=== PATIENT | female | born 1985 | race Caucasian/White ===

== ENCOUNTER 2021-05-08 04:22 | Outpatient (CLI) | payer MEDICAID, SELFPAY ==
[2021-05-08 09:10] LABS: Hemoglobin A1C 5.3 % (<5.7)
[2021-05-08 10:17] LABS: ALT 21 U/L (14-59); AST 16 U/L (15-37); Albumin 3.3 g/dL (3.4-5.0); Alkaline Phosphatase 93 U/L (46-116); Anion Gap 11.2 mmol/L (3-11); BUN 10 mg/dL (7-18); Bilirubin, Total 0.2 mg/dL (0.2-1.0); CO2 24.8 mmol/L (21.0-32.0); CREATININE 0.6 mg/dL (0.55-1.02); Calcium 8.7 mg/dL (8.5-10.1); Chloride 102 mmol/L (98-107); Cholesterol 256 mg/dL (<200); Ferritin 8 ng/mL (8-252); Folate > 20.0 ng/mL (8.6-20.0); Glucose 83 mg/dL (74-106); HDL Cholesterol 37 mg/dL (40-60); Magnesium 1.6 mg/dL (1.8-2.4); Potassium 3.7 mmol/L (3.5-5.1); Sodium 138 mmol/L (136-145); TSH 1.89 uIU/mL (0.36-3.74); Total Protein 6.8 g/dL (6.4-8.2); Triglyceride 559 mg/dL (<150); Vitamin B12 287 pg/mL (193-986)
[2021-05-08 10:29] LABS: LDL CHOLESTEROL 105 mg/dL (<100)
[2021-05-08 10:45] LABS: FREE T4 0.69 ng/dL (0.76-1.46)
[2021-05-08 17:13] LABS: T3,Free 4.3 pg/mL (2.8-5.3)
[2021-05-09 15:58] LABS: Alcohol Negative mg/dL (Cutoff: 10); Amphetamines Presumptive Positive ng/mL; Barbiturates Negative; Benzodiazepines Negative; Cocaine Negative; Opiates Negative; Phencyclidine Negative ng/mL (Cutoff: 25); Tetrahydrocannabinol Negative ng/mL (Cutoff: 50)
[2021-05-11 01:36] LABS: Vitamin D 25 Total 13.2 ng/mL (30-100)
[2021-05-15 15:12] LABS: MDA (Ecstasy Metabolite) Negative ng/mL (Cutoff: 25); MDMA (Ecstasy) Negative ng/mL (Cutoff: 25); Methamphetamine Negative ng/mL (Cutoff: 25); Phentermine Negative ng/mL (Cutoff: 25); Pseudoephedrine/Ephedrine Negative ng/mL (Cutoff: 25)
[2021-05-20 14:36] LABS: EDDP-by GC-MS 39499 ng/mL (Cutoff: 100); Methadone-by GC-MS 11257 ng/mL (Cutoff: 100)
[2021-05-20 14:37] LABS: Methadone Interpretation Positive
== END 2021-05-08 04:23 | disposition home or self-care (01) ==
LOC: LBO 04:22
DX: F29 Unspecified psychosis not due to a substance or known physiological condition (principal)
CPT/HCPCS: 36415; 80053; 80061; 80307; 80324; 82306; 83721; 80358; 82607; 82728; 82746; 83036; 83735; 84439; 84443; 84481; 86140

== ENCOUNTER 2021-05-24 18:39 | Emergency (ER) | payer MEDICAID, SELFPAY ==
[2021-05-24] VITALS (16 sets, daily range): BP systolic 117–146; BP diastolic 68–80; PULSE 60–84; RESP 12–24; TEMP 36.8; O2SAT 97–100
--- NOTE | 2021-05-24 18:30 | RT.EKG_ITS ---
APPROVED REPORT Exam: Resting ECG Reason for Exam: CHEST PAIN Patient Location: E HR:59 bpm ECG Measurements Heart Rate 59 AXIS GA 178 P 8 QRSd 85 QRS 67 QT 457 T 56 QTc 452 Conclusion Sinus bradycardia...rate< 60 Nonspecific T abnormalities, anterior leads...T <-0.10mV, V2-V4. Sinus. No STEMI. T wave inversion in anterior leads. I have reviewed and interpreted ECG and agree with software generated interpretation.
--- NOTE | 2021-05-24 18:45 | DI.RAD_ITS ---
Exam(s) XR PORTABLE CHEST AP EXAM: XR PORTABLE CHEST AP CLINICAL HISTORY: Chest pain,. TECHNIQUE: 2D digital imaging was performed. COMPARISON: No exams were available for comparison FINDINGS: Heart size is upper normal. The mediastinum is not widened. Lungs are clear. No infiltrates nor obvious pleural effusions. IMPRESSION: No acute pulmonary findings on this single AP portable view of the chest. DATA REPOSITORY: RADIATION DOSE DELIVERED: All CT scans at this facility use at least one of these dose optimization techniques: automated exposure control; mA and/or kV adjustment per patient size (includes targeted e xams where dose is matched to clinical indication); or iterative reconstruction.
--- NOTE | 2021-05-24 18:56 | ED.GENADUL_ITS ---
Discharge Plan Disposition Patient Disposition: HOME Condition: Stable Discharge Details Clinical Impression: Left-sided chest wall pain Primary Care Provider: Unknown,Unknown ED Provider: Alyssa Horner Home Meds and New Rx's Prescriptions: New lidocaine 5 % adhesive patch,medicated 1 patch topical DAILY PRN (Reason: pain (scale score 7-10)) 7 Days Qty: 15 0RF Rx Instructions: leave on most painful area for up to 12 hrs amoxicillin-pot clavulanate [Augmentin] 500-125 mg tablet 1 tab PO BID 7 Days Qty: 14 0RF No Action methadone 10 mg/5 mL Solution 140 mg PO DAILY 0RF lorazepam 0.5 mg Tablet 0.5 mg PO DAILY 0RF melatonin 1 mg Tablet 6 mg PO DAILY 0RF gabapentin 300 mg Tablet 300 mg PO TID 0RF Discharge Instructions Instructions: Costochondritis (ED), Chest Wall Pain (ED) Additional Instructions: At this time cardiac work-up is within normal limits. No evidence of lung or heart involvement. I do suspect that this is an inflammation of the connective tissue within your rib cage. Use lidocaine patches as directed once a day. Please take Tylenol or Ibuprofen with food every 4-6 hours as needed for pain a nd swelling. Follow up with primary care provider in 3-5 days. Return to ED sooner if any worsening or concerns. Increase oral fluids. Medical Decision Making 35-year-old female presents to the ER with left lateral chest pain which began this morning. She reports increased pain with movement leaning forward and deep breathing. She is a daily smoker. She is not vaccinated for COVID. She denies any fever or chills. Denies any nausea vomiting diarrhea. She is speaking in full sentences upon initial exam and has clear bilateral lung sounds with auscultation. Cardiac work-up ordered, Covid ordered due to patient's unvaccinated status, D- dimer also ordered. EKG was reviewed by Miri Chacko ER attending, please see her official report and review. No old Hg available for review. Differential diagnosis includes not limited to pneumonia, costochondritis, PE, coronary artery disease, pneumothorax. CBC within normal limits sodium slightly low at 135, D-dimer also within normal limits initial troponin within normal limits. Covid negative. COMPARISON: No relevant prior studies available. FINDINGS: Lungs: No consolida tion. Pleural spaces: No pleural effusion. No pneumothorax. Heart/Mediastinum: No cardiomegaly. Bones/joints: Mild thoracic dextroscoliosis. No displaced fracture. IMPRESSION: Negative portable chest. Discussion with patient regarding discharge she requested an antibiotic for some dental caries. She also is requesting a lidocaine patch to go. Discussed lab result and imaging she verbalized understanding. Discussed return instructions. HPI General Mode of arrival: ambulatory . Date/Time Provider Initiated Documentation: 05/24/21 18:48 . Limitations to Documentation: no limitations . Information obtained by: RN notes reviewed . HPI Narrative: 35-year-old female presents to the ER with left lateral chest pain which began this morning. She reports increased pain with movement leaning forward and deep breathing. She is a daily smoker. She is not vaccinated for COVID. She denies any fever or chills. Denies any nausea vomiting diarrhea. She is speaking in full sentences upon initial exam and has clear bilateral lung sounds with auscultation. Related Data Home Medications Medication Instructions Recorded Confirmed amoxicillin 500 mg-potassium 1 tab PO BID 7 Days #14 tab 05/24/21 clavulanate 125 mg tablet (Augmentin) gabapentin 300 mg tablet 300 mg PO TID 05/24/21 05/24/21 lidocaine 5 % topical patch 1 patch TOPICAL DAILY PRN 7 Days 05/24/21 #15 ea lorazepam 0.5 mg tablet 0.5 mg PO DAILY 05/24/21 05/24/21 melatonin 1 mg tablet 6 mg PO DAILY 05/24/21 05/24/21 methadone 10 mg/5 mL oral solution 140 mg PO DAILY 05/24/21 05/24/21 Previous Rx's Medication Instructions Recorded amoxicillin 500 mg-potassium 1 tab PO BID 7 Days #14 tab 05/24/21 clavulanate 125 mg tablet (Augmentin) lidocaine 5 % topical patch 1 patch TOPICAL DAILY PRN 7 Days 05/24/21 #15 ea Allergies Allergy/AdvReac Type Severity Reaction Status Date / Time No Known Allergies Allergy Unverified 05/24/21 18:46 General Stated Complaint: Chest Pain GABRIEL: 3 Review of Systems All systems reviewed & are unremarkable except as noted in HPI and below Constitutional Constitutional: Denies chills and Denies fever(s) Cardiovascular Cardiovascular: Reports as per HPI, Reports chest pain, Denies claudication and Denies leg edema PFSH All Active Problems (Updated 05/24/21 @ 20:21 by Alyssa Horner) Left-sided chest wall pain (Acute) Social History Smoking/Tobacco Use Status: Current every day Tobacco Type: cigarettes Smoking risk assessment performed?: Yes Alcohol Intake: never Drug use: Current Sobriety Substance use type: marijuana Do you feel safe at home: Yes Do you feel safe in your relationship?: Yes Exam Narrative Exam Narrative: Constitutional: Alert and oriented x3. Appears stated age. Normal body habitus. Head: Normocephalic, no trauma. Eyes: Pupils PERRL, Red reflex noted, EOM's intact. Eyelids symmetrical without lesions, discharge, or swelling. ENT: Bilateral TM's WNL, External ear normal to inspection, no mastoid TTP, swelling, or erythema, Nasal turbinates WNL, no nasal discharge. Normal dentition, Posterior pharynx WNL, no exudate. Chest: RRR, Normal S1, S2, distal pulses intact. Resp: Lungs clear to auscultation bilaterally, no wheezes, rales, or rhonchi. Abdomen: Soft, non-distended, Normoactive bowel sounds all 4 quads. Musculoskeletal: Normal gait, 5/5 strength to all four extremities. Skin: No suspicious rashes or lesions. Capillary refill less than 2 sec. Neurologic: Cranial nerves II-XII intact. Alert and oriented x 3. Motor: No deficits noted. Sensory: Intact bilaterally all 4 extremities. Reflexes: DTR's intact bilaterally.. Hematologic/Lymphatic: No ecchymosis, no lymphadenopathy. Course Vital Signs Vital signs: Vital Signs Temperature 36.8 C 05/24/21 18:43 Pulse 63 05/24/21 18:43 Respiratory Rate 16 05/24/21 18:43 Blood Pressure 140/76 05/24/21 18:43 Pulse Oximetry 100 05/24/21 18:43 Temperature 36.8 C 05/24/21 18:43 Temperature Source Temporal Artery Scan 05/24/21 18:43 Pulse 63 05/24/21 18:43 Respiratory Rate 16 05/24/21 18:43 Respiratory Effort Non-Labored 05/24/21 18:49 Blood Pressure 140/76 05/24/21 18:43 Blood Pressure Position Sitting 02/13/22 18:43 Pulse Oximetry 100 05/24/21 18:43 Oxygen Delivery Method Room Air 05/24/21 18:43 Oxygen Flow Rate 0 05/24/21 18:43
[2021-05-24 19:30] LABS: Abs Immature Grans 0.03 10^3/uL (0.0-0.06); Absolute Basophil Count 0.04 10^3/uL (0.0-0.2); Absolute Eosinophil Count 0.13 10^3/uL (0.0-0.7); Absolute Lymphocyte Count 2.64 10^3/uL (1.2-3.4); Absolute Monocyte Count 0.75 10^3/uL (0.1-0.8); Absolute Neutrophil Count 4.79 10^3/uL (1.2-6.7); Basophils % 0.5; Eosinophils % 1.6; HCT 39.4 % (36.0-46.0); HGB 13.1 g/dL (11.2-15.7); Immature Grans % 0.4; Lymphocytes % 31.5; MCH 30.6 pg (27.0-33.0); MCHC 33.2 % (32.0-36.0); MCV 92.1 fL (80-95); MPV 10.7 fL (8.0-11.0); Monocytes % 8.9; Neutrophils % 57.1; Nucleated RBC 0 %; Platelet Count 230 10^3/uL (130-400); RBC 4.28 10^6/uL (3.93-5.22); RDW 12.7 % (11.7-14.6); RDW-SD 42.6 fL; WBC 8.38 10^3/uL (4.4-10.8)
[2021-05-24] MEDS: Lidocaine 5% Patch 1 PATCH TP ×2 (19:43→20:38)
--- NOTE | 2021-05-24 19:43 | DI.VRAD_ITS ---
PROCEDURE INFORMATION: Exam: XR Chest Exam date and time: 05/24/2021 18:57 Age: 35 years old Clinical indication: Left-sided; Patient HX: Left sided chest pain TECHNIQUE: Imaging protocol: XR of the chest. Views: 1 view. COMPARISON: No relevant prior studies available. FINDINGS: Lungs: No consolidation. Pleural spaces: No pleural effusion. No pneumothorax. Heart/Mediastinum: No cardiomegaly. Bones/joints: Mild thoracic dextroscoliosis. No displaced fracture. IMPRESSION: Negative portable chest. Dictated and Authenticated by: Rubia Buitrago MD. Ordering:PROMISE Shah MD
[2021-05-24 19:45] LABS: ALT 21 U/L (14-59); AST 23 U/L (15-37); Albumin 3.5 g/dL (3.4-5.0); Alkaline Phosphatase 101 U/L (46-116); Anion Gap 6.9 mmol/L (3-11); BUN 11 mg/dL (7-18); Bilirubin, Total 0.2 mg/dL (0.2-1.0); CO2 28.1 mmol/L (21.0-32.0); CREATININE 0.7 mg/dL (0.55-1.02); Calcium 8.9 mg/dL (8.5-10.1); Chloride 100 mmol/L (98-107); Glucose 103 mg/dL (74-106); Potassium 3.6 mmol/L (3.5-5.1); Sodium 135 mmol/L (136-145); Total Protein 7.6 g/dL (6.4-8.2); Troponin I < 50 ng/L (<or=60)
[2021-05-24] MEDS: Nicotine 2 MG GUM CH (19:57)
[2021-05-24 20:04] LABS: D-Dimer 251 ng/mlFEU (<500)
[2021-05-24 20:04] LABS: COVID-19 PCR Negative (Negative)
[2021-05-24 20:05] LABS: Source Nasal/Nares
== END 2021-05-24 20:32 | disposition home or self-care (01) ==
PROVIDERS: Emergency Provider Registered Nurse Emergency
DX: R07.89 Other chest pain (principal); F17.210 Nicotine dependence, cigarettes, uncomplicated; K02.9 Dental caries, unspecified; Z28.3 Underimmunization status
CPT/HCPCS: 36415; 80053; 81025; 87635; 93005; 99282; 99284; 71045; 83735; 84484; 85025; 85379; 93010

== ENCOUNTER 2022-01-06 03:14 | Outpatient (CLI) | payer MEDICAID, SELFPAY ==
[2022-01-06 12:26] LABS: Calculated LDL 84 mg/dL (<100); Cholesterol 179 mg/dL (<200); HDL Cholesterol 48 mg/dL (40-60); Triglyceride 237 mg/dL (<150)
== END 2022-01-06 03:15 | disposition home or self-care (01) ==
LOC: LOS 03:14
PROVIDERS: PCP Nurse Practitioner Family; Visit Provider Nurse Practitioner Family
DX: E78.5 Hyperlipidemia, unspecified (principal)
CPT/HCPCS: 36415; 80061

== ENCOUNTER 2022-01-06 18:35 | Emergency (ER) | payer MEDICAID, SELFPAY ==
[2022-01-06] VITALS (18 sets, daily range): BP systolic 104–129; BP diastolic 65–85; PULSE 66–85; RESP 12–26; TEMP 37; O2SAT 94–99
--- NOTE | 2022-01-06 18:30 | RT.EKG_ITS ---
APPROVED REPORT Exam: Resting ECG Reason for Exam: chest pain Patient Location: E HR:65 bpm ECG Measurements Heart Rate 65 AXIS AZ 181 P -1 QRSd 82 QRS 69 QT 432 T 56 QTc 450 Conclusion Sinus rhythm...normal P axis, V-rate 60- 99 Nonspecific T abnormalities, anterior leads...T <-0.10mV, V2-V4 Physician:no stemi, inverted t waves in anterior leads, unchanged
--- NOTE | 2022-01-06 19:00 | DI.RAD_ITS ---
Exam(s) XR PORTABLE CHEST AP EXAM: XR PORTABLE CHEST AP CLINICAL HISTORY: chest pain TECHNIQUE: 2D digital imaging was performed of the chest. One image was obtained. An AP view was ob tained. COMPARISON: CR,XR XR PORTABLE CHEST AP from 05/24/2021 FINDINGS: MEDIASTINUM: Normal. HEART: Normal. PULMONARY VASCULATURE: Normal. LUNGS: Clear. PLEURAL SPACE: No pleural effusion or pneumothorax. BONE:Within normal limits for the patient's age. OTHER FINDINGS:Normal. IMPRESSION: No acute pulmonary findings. DATA REPOSITORY: RADIATION DOSE DELIVERED:
[2022-01-06 19:15] LABS: Abs Immature Grans 0.05 10^3/uL (0.0-0.06); Absolute Basophil Count 0.03 10^3/uL (0.0-0.2); Absolute Eosinophil Count 0.16 10^3/uL (0.0-0.7); Absolute Lymphocyte Count 2.92 10^3/uL (1.2-3.4); Absolute Monocyte Count 0.76 10^3/uL (0.1-0.8); Absolute Neutrophil Count 5.26 10^3/uL (1.2-6.7); Basophils % 0.3; Eosinophils % 1.7; HCT 39.2 % (36.0-46.0); HGB 13.1 g/dL (11.2-15.7); Immature Grans % 0.5; Lymphocytes % 31.8; MCH 30.3 pg (27.0-33.0); MCHC 33.4 % (32.0-36.0); MCV 91 fL (80-95); MPV 10.9 fL (8.0-11.0); Monocytes % 8.3; Neutrophils % 57.4; Platelet Count 243 10^3/uL (130-400); RBC 4.33 10^6/uL (3.93-5.22); RDW 13.2 % (11.7-14.6); RDW-SD 43.8 fL; WBC 9.18 10^3/uL (4.4-10.8)
[2022-01-06] MEDS: Simethicone 80 MG CHEW 160 MG PO (19:23)
[2022-01-06 19:35] LABS: ALT 14 U/L (14-59); AST 12 U/L (15-37); Albumin 3.3 g/dL (3.4-5.0); Alkaline Phosphatase 98 U/L (46-116); Anion Gap 7.6 mmol/L (3-11); BUN 10 mg/dL (7-18); Bilirubin, Total 0.2 mg/dL (0.2-1.0); CO2 28.4 mmol/L (21.0-32.0); CREATININE 0.8 mg/dL (0.55-1.02); Calcium 9.2 mg/dL (8.5-10.1); Chloride 100 mmol/L (98-107); Estimated GFR 96.66 (mL/min/1.73m2); Glucose 120 mg/dL (74-106); Lipase 87 U/L (73-393); Potassium 3.3 mmol/L (3.5-5.1); Sodium 136 mmol/L (136-145); Total Protein 7.6 g/dL (6.4-8.2); Troponin I < 50 ng/L (<or=60)
--- NOTE | 2022-01-06 20:26 | DI.VRAD_ITS ---
PROCEDURE INFORMATION: Exam: XR Chest Exam date and time: 01/06/2022 7:16 PM Age: 36 years old Clinical indication: Other: Chest pain TECHNIQUE: Imaging protocol: Radiologic exam of the chest. Views: 1 view. COMPARISON: XR PORTABLE CHEST AP 05/24/2021 7:07 PM FINDINGS: Lungs: Minimal scarring left lower lobe of the lung. There is no evidence of focal pulmonary consolidation. The pulmonary vasculature is normal. Pleural spaces: There is no evidence of pneumothorax. There are no pleural effusions present. Heart/Mediastinum: The cardiac silhouette is within normal limits. The mediastinum is normal. Bones/joints: The spine, sternum, ribs, and pectoral girdles show no evidence of acute abnormality Other findings: There are no soft tissue masses or calcifications. IMPRESSION: No active cardiopulmonary disease. Dictated and Authenticated by: Remi Gutierrez MD. Ordering:DAVID Gilman MD
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
[2022-01-06] MEDS: Potassium Chloride 20 MEQ TABCR 40 MEQ PO (20:44)
== END 2022-01-06 20:45 | disposition home or self-care (01) ==
PROVIDERS: Emergency Provider Physician Assistant; PCP Nurse Practitioner Family
DX: R07.9 Chest pain, unspecified (principal); E87.6 Hypokalemia
CPT/HCPCS: 36415; 80053; 83690; 93005; 99284; 71045; 84484; 85025; 93010

== ENCOUNTER 2023-08-29 14:23 | Emergency (ER) | payer MEDICAID, SELFPAY ==
[2023-08-29 14:25] VITALS: BP 127/80; PULSE 86; RESP 15; TEMP 36.8; O2SAT 98
--- NOTE | 2023-08-29 14:30 | DI.CT_ITS ---
Exam(s) CT HEAD CERVICAL SPINE WO EXAM: CT HEAD CERVICAL SPINE WO CLINICAL HISTORY: posterior head pain and neck pain. TECHNIQUE: Imaging Protocol: Axial computed tomography images with coronal and sagittal reformatted images were created and reviewed COMPARISON: No exams were available for comparison FINDINGS: Head CT Ventricles and Extra axial spaces: Normal in size and morphology for the patient's age. Hemorrhage: None. Cerebral parenchyma: No evidence of mass or acute infarct. Midline shift: None. Brainstem/Cerebellum: Normal. Calvarium: Normal. Visualized Paranasal sinuses/Mastoids: Clear. Soft tissues: Unremarkable. Cervical Spine CT BONES: Vertebral body heights are maintained. Alignment is normal. There is no evidence of acute frac ture. Degenerative disc changes and facet degenerative changes are seen . SOFT TISSUES: No paraspinal hematoma. The airway appears intact. No pneumothorax is seen at the lung apices. IMPRESSION: Head CT: No acute abnormality. C-spine CT: Degenerative changes, no acute abnormality. RADIATION DOSE DELIVERED: 1,172.68mGy.cm Total DLP DATA REPOSITORY: All CT scans at this facility are submitted to the National Radiology Data Registry (NRDR) Dose Index Registry (DIR) with the [employer] ([employer]). RADIATION OPTIMIZATION: All CT scans at this facility use at least one of these dose optimization te chniques: automated exposure control; mA and/or kV adjustment per patient size (includes targeted exa ms where dose is matched to clinical indication); or iterative reconstruction.
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
== END 2023-08-29 16:20 | disposition home or self-care (01) ==
PROVIDERS: Emergency Provider Emergency Medicine; PCP Nurse Practitioner Family
DX: M54.2 Cervicalgia (principal); R51.9 Headache, unspecified
CPT/HCPCS: 99284; 70450; 72125; 99283

== ENCOUNTER 2024-09-07 12:49 | Outpatient (CLI) | payer MEDICAID, SELFPAY ==
--- NOTE | 2024-09-07 12:45 | RT.EKG_ITS ---
APPROVED REPORT Exam: Resting ECG Reason for Exam: HIGH RISK MEDICATION USE Patient Location: O HR:60 bpm ECG Measurements Heart Rate 60 AXIS UT 177 P 46 QRSd 89 QRS 67 QT 469 T 60 QTc 469 Conclusion Sinus rhythm...normal P axis, V-rate 50- 99 Borderline T abnormalities, anterior leads...T flat or neg, V2-V4
== END 2024-09-07 12:50 | disposition home or self-care (01) ==
PROVIDERS: PCP Nurse Practitioner Family; Visit Provider Family Medicine
DX: Z79.899 Other long term (current) drug therapy (principal)
CPT/HCPCS: 93005; 93010